=== PATIENT | female | born 1945 | race Caucasian/White ===

== ENCOUNTER 2018-05-14 09:54 | Inpatient (IN) | payer MEDICARE, BC ==
[2018-05-14] MEDS ORDERED: Sodium Chloride 0.9% 10 ML Syringe FLUSH PRN (10:34)
--- NOTE | 2018-05-14 11:16 | EDM.PDOC ---
ED HPI GENERAL MEDICAL PROBLEM - General Chief Complaint: Neuro Symptoms/Deficits Stated Complaint: [id number] HAD SEIZURE Time Seen by Provider: 05/14/18 10:18 Source of Information: Reports: Patient, RN, RN Notes Reviewed History Limitations: Reports: No Limitations - History of Present Illness INITIAL COMMENTS - FREE TEXT/NARRATIVE: Patient presents to ER per POV with son with complaint of seizures x2 this morning. Patient has a known seizure disorder, significant cardiac history with pacemaker, and defibrillator. Patient was started on Flexeril (cyclobenzaprine) about 1 week ago. She states she has been taking 1 in the a.m. and 2 at night due to muscle spasm in the neck. She has also been seeing PT at [facility]. Patient states she didn't feel well this morning and called her son, who then came to her house. He states she then had a witnessed 30 second episode where she had a blank stare and twitching. Patient alert and oriented upon arrival. States he bit her lip upper and lower. Onset: Today Location: Reports: Generalized Quality: Reports: Ache Severity: Mild Improves with: Reports: None Worsens with: Reports: None Associated Symptoms: Reports: No Other Symptoms - Related Data Allergies Allergy/AdvReac Type Severity Reaction Status Date / Time No Known Allergies Allergy Verified 05/14/18 09:58 Home Meds: Home Meds Escitalopram Oxalate [Lexapro] 10 mg PO DAILY 11/10/13 [History] Nitroglycerin [Nitrostat] 0.4 mg SL ASDIRECTED 11/10/13 [History] atorvaSTATin [Lipitor] 20 mg PO BEDTIME 11/10/13 [History] levETIRAcetam [Keppra] 500 mg PO BID 11/10/13 [History] Digoxin [Digox] 125 mcg PO DAILY 07/27/16 [History] Metoprolol Succinate 100 mg PO DAILY 07/27/16 [History] Cyclobenzaprine [Flexeril] 5 mg PO Q8H PRN 05/14/18 [History] Rivaroxaban [Xarelto] 20 mg PO DAILY 05/14/18 [History] Past Medical History HEENT History: Reports: Impaired Vision Cardiovascular History: Reports: Automatic Implantable Cardioverter Defibrillators, Bypass, High Cholesterol, Hypertension, Pacemaker Respiratory History: Reports: None Gastrointestinal History: Reports: GERD Neurological History: Reports: Seizure Psychiatric History: Reports: Anxiety - Past Surgical History HEENT Surgical History: Reports: Cataract Surgery Cardiovascular Surgical History: Reports: Coronary Artery Bypass, Pacer GI Surgical History: Reports: Cholecystectomy, Colonoscopy Other Musculoskeletal Surgeries/Procedures:: states had back surgery about 3 years ago Social & Family History - Family History Family Medical History: Noncontributory - Tobacco Use Smoking Status *Q: Never Smoker Second Hand Smoke Exposure: No - Caffeine Use Caffeine Use: Reports: None - Recreational Drug Use Recreational Drug Use: No - Living Situation & Occupation Living situation: Reports: with Family ED ROS GENERAL - Review of Systems Review Of Systems: ROS reveals no pertinent complaints other than HPI. - Physical Exam Exam: See Below Exam Limited By: No Limitations General Appearance: Alert, WD/WN, No Apparent Distress Eye Exam: Bilateral Eye: PERRL (3 brisk) Ears: Normal External Exam, Normal Canal, Hearing Grossly Normal, Normal TMs Nose: Normal Inspection, Normal Mucosa, No Blood Throat/Mouth: Normal Inspection, Normal Lips, Normal Teeth, Normal Gums, Normal Oropharynx, Normal Voice, No Airway Compromise Head Exam: Atraumatic, Normocephalic Neck: Normal Inspection, Supple, Non-Tender, Full Range of Motion Respiratory/Chest: No Respiratory Distress, Lungs Clear, Normal Breath Sounds, No Accessory Muscle Use, Chest Non-Tender Cardiovascular: Other (murmur) GI/Abdominal: Normal Bowel Sounds, Soft, Non-Tender, No Organomegaly, No Distention, No Abnormal Bruit, No Mass (Female) Exam: Deferred Rectal (Female) Exam: Deferred Neuro Exam (Abbreviated): Alert, Oriented, CN II-XII Intact, Normal Cognition, Normal Gait, Normal Reflexes, No Motor/Sensory Deficits Back Exam: Normal Inspection, Full Range of Motion, NT Extremities: Normal Inspection, Normal Range of Motion, Non-Tender, No Pedal Edema, Normal Capillary Refill Psychiatric: Normal Affect, Normal Mood Skin Exam: Warm, Dry, Intact, Normal Color, No Rash EKG INTERPRETATION EKG Date: 05/14/18 Time: 11:01 Rhythm: Other (atrial paced) Rate (Beats/Min): 60 Comparison: No Change Course - Vital Signs Last Recorded V/S: Last Vital Signs Temp 97.9 F 05/14/18 09:59 Pulse 86 05/14/18 09:59 Resp 16 05/14/18 09:59 BP 163/103 H 05/14/18 09:59 Pulse Ox 96 05/14/18 09:59 - Orders/Labs/Meds Orders: Active Orders 24 hr Category Date Time Status EKG Documentation Completion [RC] STAT Care 05/14/18 10:35 Active Peripheral IV Care [RC] . DIRECTED Care 05/14/18 10:38 Active Head wo Cont [CT] Stat Exams 05/14/18 10:37 Taken LEVETIRACETAM, S [REF] Urgent Lab 05/14/18 10:50 Received Sodium Chloride 0.9% [Saline Flush] Med 05/14/18 10:34 Active 10 ml FLUSH ASDIRECTED PRN Peripheral IV Insertion Adult [OM.PC] Stat Oth 05/14/18 10:35 Ordered Medication Orders Sodium Chloride (Saline Flush) 10 ml FLUSH ASDIRECTED PRN PRN Reason: Keep Vein Open Last Admin: 05/14/18 11:14 Dose: 10 ml Labs: Laboratory Tests 05/14/18 05/14/18 05/14/18 Range/Units 10:50 10:50 10:50 WBC 8.5 (5.0-10.0) 10^3/uL RBC 3.86 L (4.2-5.4) 10^6/uL Hgb 11.9 L (12.0-16.0) g/dL Hct 36.5 L (37.0-47.0) % MCV 94.6 (80-100) fL MCH 30.8 (27.0-34.0) pg MCHC 32.6 L (33.0-35.0) g/dL Plt Count 137 L (150-450) 10^3/uL Neut % (Auto) 83.2 H (42.2-75.2) % Lymph % (Auto) 11.0 L (20.5-50.1) % [place] % (Auto) 5.2 (2-8) % Eos % (Auto) 0.4 L (1.0-3.0) % Baso % (Auto) 0.2 (0.0-1.0) % PT 14.3 H D (9.0-12.0) SEC INR 1.5 H (0.9-1.2) Sodium 137 (135-145) mmol/L Potassium 4.1 (3.6-5.0) mmol/L Chloride 102 (101-111) mmol/L Carbon Dioxide 28.0 (21.0-31.0) mmol/L Anion Gap 11.1 BUN 22 H (7-18) mg/dL Creatinine 0.8 (0.6-1.3) mg/dL Est Cr Clr Drug Dosing 42.60 mL/min Estimated GFR (MDRD) > 60 BUN/Creatinine Ratio 27.50 Glucose 106 H (74-105) mg/dL Calcium 8.2 L (8.4-10.2) mg/dl Total Bilirubin 0.4 (0.2-1.0) mg/dL AST 30 (10-42) IU/L ALT 20 (10-60) IU/L Alkaline Phosphatase 84 (42-121) IU/L Total Protein 6.5 L (6.7-8.2) g/dl Albumin 3.1 L (3.2-5.5) g/dl Globulin 3.4 Albumin/Globulin Ratio 0.91 Urine Color (YELLOW) Urine Appearance (CLEAR) Urine pH (5.0-9.0) Ur Specific [place] (1.005-1.030) Urine Protein (NEGATIVE) Urine Glucose (UA) (NEGATIVE) Urine Ketones (NEGATIVE) Urine Occult Blood (NEGATIVE) Urine Nitrite (NEGATIVE) Urine Bilirubin (NEGATIVE) Urine Urobilinogen (0.2-1.0) mg/dL Ur Leukocyte Esterase (NEGATIVE) Urine RBC /HPF Urine WBC (0-5/HPF) /HPF Ur Epithelial Cells /HPF Urine Bacteria (0-FEW/HPF) /HPF Urine Mucus /LPF Digoxin (0-2.5) ng/ml 05/14/18 05/14/18 Range/Units 10:50 11:15 WBC (5.0-10.0) 10^3/uL RBC (4.2-5.4) 10^6/uL Hgb (12.0-16.0) g/dL Hct (37.0-47.0) % MCV (80-100) fL MCH (27.0-34.0) pg MCHC (33.0-35.0) g/dL Plt Count (150-450) 10^3/uL Neut % (Auto) (42.2-75.2) % Lymph % (Auto) (20.5-50.1) % [place] % (Auto) (2-8) % Eos % (Auto) (1.0-3.0) % Baso % (Auto) (0.0-1.0) % PT (9.0-12.0) SEC INR (0.9-1.2) Sodium (135-145) mmol/L Potassium (3.6-5.0) mmol/L Chloride (101-111) mmol/L Carbon Dioxide (21.0-31.0) mmol/L Anion Gap BUN (7-18) mg/dL Creatinine (0.6-1.3) mg/dL Est Cr Clr Drug Dosing mL/min Estimated GFR (MDRD) BUN/Creatinine Ratio Glucose (74-105) mg/dL Calcium (8.4-10.2) mg/dl Total Bilirubin (0.2-1.0) mg/dL AST (10-42) IU/L ALT (10-60) IU/L Alkaline Phosphatase (42-121) IU/L Total Protein (6.7-8.2) g/dl Albumin (3.2-5.5) g/dl Globulin Albumin/Globulin Ratio Urine Color Yellow (YELLOW) Urine Appearance Clear (CLEAR) Urine pH 6.0 (5.0-9.0) Ur Specific [place] 1.020 (1.005-1.030) Urine Protein Negative (NEGATIVE) Urine Glucose (UA) Negative (NEGATIVE) Urine Ketones Negative (NEGATIVE) Urine Occult Blood Trace-lysed H (NEGATIVE) Urine Nitrite Negative (NEGATIVE) Urine Bilirubin Negative (NEGATIVE) Urine Urobilinogen 0.2 (0.2-1.0) mg/dL Ur Leukocyte Esterase Small H (NEGATIVE) Urine RBC 0-5 /HPF Urine WBC 5-10 H (0-5/HPF) /HPF Ur Epithelial Cells Few /HPF Urine Bacteria Few (0-FEW/HPF) /HPF Urine Mucus Few H /LPF Digoxin 3.3 H* (0-2.5) ng/ml Meds: Medications Generic Name Dose Route Start Last Admin Trade Name Freq PRN Reason Stop Dose Admin Sodium Chloride 10 ml 05/14/18 10:34 05/14/18 11:14 Saline Flush FLUSH 10 ml ASDIRECTED PRN Administration Keep Vein Open - Radiology Interpretation Free Text/Narrative:: Head CT: IMPRESSION: 1. Age-related atrophy and chronic white matter ischemic changes, with no evidence of an acute intracranial abnormality. 2. No hemorrhage, mass effect or midline shift. Thank you for allowing us to participate in the care of your patient. See rad report Departure - Departure Time of Disposition: 12:40 Disposition: Refer to Observation Condition: Fair Clinical Impression: Seizure Digoxin toxicity Qualifiers: Encounter type: initial encounter Injury intent: accidental or unintentional Qualified Code(s): T46.0X1A - Poisoning by cardiac-stimulant glycosides and drugs of similar action, accidental (unintentional), initial encounter - Discharge Information *PRESCRIPTION DRUG MONITORING PROGRAM REVIEWED*: No *COPY OF PRESCRIPTION DRUG MONITORING REPORT IN PATIENT ESTELA: No - My Orders Last 24 Hours: My Active Orders 05/14/18 10:34 Sodium Chloride 0.9% [Saline Flush] 10 ml FLUSH ASDIRECTED PRN 05/14/18 10:35 EKG Documentation Completion [RC] STAT Peripheral IV Insertion Adult [OM.PC] Stat 05/14/18 10:37 Head wo Cont [CT] Stat 05/14/18 10:38 Peripheral IV Care [RC] . DIRECTED 05/14/18 10:50 LEVETIRACETAM, S [REF] Urgent - Assessment/Plan Last 24 Hours: My Active Orders 05/14/18 10:34 Sodium Chloride 0.9% [Saline Flush] 10 ml FLUSH ASDIRECTED PRN 05/14/18 10:35 EKG Documentation Completion [RC] STAT Peripheral IV Insertion Adult [OM.PC] Stat 05/14/18 10:37 Head wo Cont [CT] Stat 05/14/18 10:38 Peripheral IV Care [RC] . DIRECTED 05/14/18 10:50 LEVETIRACETAM, S [REF] Urgent
[2018-05-14 11:17] LABS: ANION GAP 11.1; CHLORIDE,CL 102 mmol/L (101-111); SODIUM,NA 137 mmol/L (135-145)
[2018-05-14] MEDS ORDERED: Acetaminophen 325 MG Tab PO PRN (13:05)
--- NOTE | 2018-05-14 13:14 | PCM.HP ---
H&P History of Present Illness - General Date of Service: 05/14/18 Admit Problem/Dx: Admission Diagnosis/Problem Admission Diagnosis/Problem Seizure disorder Source of Information: Patient History Limitations: Reports: No Limitations - History of Present Illness Initial Comments - Free Text/Narative: Patient 73 y/o F with h/o seizure disorder, last seizure over 3 years ago,CAD s/ p CABG, s/p pacemaker, and defibrillator, HTN, HLD, Anxiety. She was brought to the ER on account of seizures x 2 this morning. Patient said she felt funny this morning and lay on the ground. Did not remember if she had a seizure episode but reporting bitting her lips. He called the son who came over to see her. Upon arrival son said the mother was bending over to pick an object on the ground and then she froze. Patient was staring blankly into space and started twitching. This lasted for 30 s and she came out of it. She denies bladder or bowel incontinence but said she bit her lower lip. She was not confused following the episode. On arrival to the ER she was alert and oriented x 3. She denies headache, numbness, weakness, chest pain,SOB. No fever or chills. No nausea, vomiting. Labs in the ER showed digoxin elevated at 3.3. Patient denied overdose on her digoxin. CT brain was negative for acute injury. Of notes she was recently started on Flexeril (cyclobenzaprine) about 1 week ago. She also on Lexapro. - Related Data Allergies/Adverse Reactions: Allergies Allergy/AdvReac Type Severity Reaction Status Date / Time No Known Allergies Allergy Verified 05/14/18 09:58 Home Medications: Home Meds Escitalopram Oxalate [Lexapro] 10 mg PO DAILY 11/10/13 [History] Nitroglycerin [Nitrostat] 0.4 mg SL ASDIRECTED 11/10/13 [History] atorvaSTATin [Lipitor] 20 mg PO BEDTIME 11/10/13 [History] levETIRAcetam [Keppra] 500 mg PO BID 11/10/13 [History] Digoxin [Digox] 125 mcg PO DAILY 07/27/16 [History] Metoprolol Succinate 100 mg PO DAILY 07/27/16 [History] Cyclobenzaprine [Flexeril] 5 mg PO Q8H PRN 05/14/18 [History] Rivaroxaban [Xarelto] 20 mg PO DAILY 05/14/18 [History] Past Medical History HEENT History: Reports: Impaired Vision Cardiovascular History: Reports: Automatic Implantable Cardioverter Defibrillators, Bypass, High Cholesterol, Hypertension, Pacemaker Respiratory History: Reports: None Gastrointestinal History: Reports: GERD Neurological History: Reports: Seizure Psychiatric History: Reports: Anxiety - Past Surgical History HEENT Surgical History: Reports: Cataract Surgery Cardiovascular Surgical History: Reports: Coronary Artery Bypass, Pacer GI Surgical History: Reports: Cholecystectomy, Colonoscopy Other Musculoskeletal Surgeries/Procedures:: states had back surgery about 3 years ago Social & Family History - Family History Family Medical History: Noncontributory - Tobacco Use Smoking Status *Q: Never Smoker Second Hand Smoke Exposure: No - Caffeine Use Caffeine Use: Reports: None - Recreational Drug Use Recreational Drug Use: No - Living Situation & Occupation Living situation: Reports: with Family H&P Review of Systems - Review of Systems: Review Of Systems: See Below General: Reports: No Symptoms HEENT: Reports: No Symptoms Pulmonary: Reports: No Symptoms Cardiovascular: Reports: No Symptoms Gastrointestinal: Reports: No Symptoms Genitourinary: Reports: No Symptoms Musculoskeletal: Reports: No Symptoms Skin: Reports: No Symptoms Psychiatric: Reports: No Symptoms Neurological: Reports: No Symptoms Hematologic/Lymphatic: Reports: No Symptoms Immunologic: Reports: No Symptoms Exam - Exam Exam: See Below - Vital Signs Vital Signs: Last Vital Signs Temp 98.5 F 05/14/18 12:43 Pulse 79 05/14/18 12:43 Resp 20 05/14/18 12:43 BP 163/80 H 05/14/18 12:43 Pulse Ox 94 L 05/14/18 12:43 Weight: 105 lb 12.8 oz - Exam Quality Assessment: DVT Prophylaxis General: Alert, Oriented, 4 HEENT: PERRLA, Hearing Intact, Mucosa Moist & [place], Nares Patent, Normal Nasal Septum, Posterior Pharynx Clear, Conjunctiva Clear, EOMI, EACs Clear, TMs Clear Neck: Supple, Trachea Midline, 2 Lungs: Clear to Auscultation, Normal Respiratory Effort Cardiovascular: Regular Rate, Regular Rhythm GI/Abdominal Exam: Normal Bowel Sounds, Soft, Non-Tender, No Organomegaly, No Distention, No Abnormal Bruit, No Mass, Pelvis Stable (Female) Exam: Normal External Exam, Normal Speculum Exam, Normal Bimanual Exam Rectal (Female) Exam: Normal Exam, Normal Rectal Tone Back Exam: Normal Inspection, Full Range of Motion, NT Extremities: Normal Inspection, Normal Range of Motion, Non-Tender, No Pedal Edema, Normal Capillary Refill Skin: Warm, Dry, Intact Neurological: Cranial Nerves Intact, Reflexes Equal Bilateral Neuro Extensive - Mental Status: Alert, Oriented x3, Normal Mood/Affect, Normal Cognition Neuro Extensive - Motor, Sensory, Reflexes: CN II-XII Intact, Normal Gait, Normal Reflexes Psychiatric: Alert, Normal Affect, Normal Mood - Patient Data Lab Results Last 24 hrs: Laboratory Results - last 24 hr 05/14/18 05/14/18 05/14/18 Range/Units 10:50 10:50 10:50 WBC 8.5 (5.0-10.0) 10^3/uL RBC 3.86 L (4.2-5.4) 10^6/uL Hgb 11.9 L (12.0-16.0) g/dL Hct 36.5 L (37.0-47.0) % MCV 94.6 (80-100) fL MCH 30.8 (27.0-34.0) pg MCHC 32.6 L (33.0-35.0) g/dL Plt Count 137 L (150-450) 10^3/uL Neut % (Auto) 83.2 H (42.2-75.2) % Lymph % (Auto) 11.0 L (20.5-50.1) % [place] % (Auto) 5.2 (2-8) % Eos % (Auto) 0.4 L (1.0-3.0) % Baso % (Auto) 0.2 (0.0-1.0) % PT 14.3 H D (9.0-12.0) SEC INR 1.5 H (0.9-1.2) Sodium 137 (135-145) mmol/L Potassium 4.1 (3.6-5.0) mmol/L Chloride 102 (101-111) mmol/L Carbon Dioxide 28.0 (21.0-31.0) mmol/L Anion Gap 11.1 BUN 22 H (7-18) mg/dL Creatinine 0.8 (0.6-1.3) mg/dL Est Cr Clr Drug Dosing 42.60 mL/min Estimated GFR (MDRD) > 60 BUN/Creatinine Ratio 27.50 Glucose 106 H (74-105) mg/dL Calcium 8.2 L (8.4-10.2) mg/dl Total Bilirubin 0.4 (0.2-1.0) mg/dL AST 30 (10-42) IU/L ALT 20 (10-60) IU/L Alkaline Phosphatase 84 (42-121) IU/L Total Protein 6.5 L (6.7-8.2) g/dl Albumin 3.1 L (3.2-5.5) g/dl Globulin 3.4 Albumin/Globulin Ratio 0.91 Urine Color (YELLOW) Urine Appearance (CLEAR) Urine pH (5.0-9.0) Ur Specific [place] (1.005-1.030) Urine Protein (NEGATIVE) Urine Glucose (UA) (NEGATIVE) Urine Ketones (NEGATIVE) Urine Occult Blood (NEGATIVE) Urine Nitrite (NEGATIVE) Urine Bilirubin (NEGATIVE) Urine Urobilinogen (0.2-1.0) mg/dL Ur Leukocyte Esterase (NEGATIVE) Urine RBC /HPF Urine WBC (0-5/HPF) /HPF Ur Epithelial Cells /HPF Urine Bacteria (0-FEW/HPF) /HPF Urine Mucus /LPF Digoxin (0-2.5) ng/ml 05/14/18 05/14/18 Range/Units 10:50 11:15 WBC (5.0-10.0) 10^3/uL RBC (4.2-5.4) 10^6/uL Hgb (12.0-16.0) g/dL Hct (37.0-47.0) % MCV (80-100) fL MCH (27.0-34.0) pg MCHC (33.0-35.0) g/dL Plt Count (150-450) 10^3/uL Neut % (Auto) (42.2-75.2) % Lymph % (Auto) (20.5-50.1) % [place] % (Auto) (2-8) % Eos % (Auto) (1.0-3.0) % Baso % (Auto) (0.0-1.0) % PT (9.0-12.0) SEC INR (0.9-1.2) Sodium (135-145) mmol/L Potassium (3.6-5.0) mmol/L Chloride (101-111) mmol/L Carbon Dioxide (21.0-31.0) mmol/L Anion Gap BUN (7-18) mg/dL Creatinine (0.6-1.3) mg/dL Est Cr Clr Drug Dosing mL/min Estimated GFR (MDRD) BUN/Creatinine Ratio Glucose (74-105) mg/dL Calcium (8.4-10.2) mg/dl Total Bilirubin (0.2-1.0) mg/dL AST (10-42) IU/L ALT (10-60) IU/L Alkaline Phosphatase (42-121) IU/L Total Protein (6.7-8.2) g/dl Albumin (3.2-5.5) g/dl Globulin Albumin/Globulin Ratio Urine Color Yellow (YELLOW) Urine Appearance Clear (CLEAR) Urine pH 6.0 (5.0-9.0) Ur Specific [place] 1.020 (1.005-1.030) Urine Protein Negative (NEGATIVE) Urine Glucose (UA) Negative (NEGATIVE) Urine Ketones Negative (NEGATIVE) Urine Occult Blood Trace-lysed H (NEGATIVE) Urine Nitrite Negative (NEGATIVE) Urine Bilirubin Negative (NEGATIVE) Urine Urobilinogen 0.2 (0.2-1.0) mg/dL Ur Leukocyte Esterase Small H (NEGATIVE) Urine RBC 0-5 /HPF Urine WBC 5-10 H (0-5/HPF) /HPF Ur Epithelial Cells Few /HPF Urine Bacteria Few (0-FEW/HPF) /HPF Urine Mucus Few H /LPF Digoxin 3.3 H* (0-2.5) ng/ml Result Diagrams: 05/14/18 10:50 05/14/18 10:50 - Problem List (1) CAD (coronary artery disease) SNOMED Code(s): 66723039 ICD Code: I25.10 - ATHSCL HEART DISEASE OF [place] CORONARY ARTERY W/O ANG PCTRS Status: Acute Current Visit: Yes (2) Digoxin toxicity SNOMED Code(s): 08958570 ICD Code: T46.0X1A - POISONING BY CARDI-STIM GLYCOS/DRUG SIMLAR ACT, ACC, INIT Status: Acute Current Visit: Yes Qualifiers: Encounter type: initial encounter Injury intent: accidental or unintentional Qualified Code(s): T46.0X1A - Poisoning by cardiac-stimulant glycosides and drugs of similar action, accidental (unintentional), initial encounter (3) Seizure SNOMED Code(s): 93389845 ICD Code: R56.9 - UNSPECIFIED CONVULSIONS Status: Acute Current Visit: Yes (4) History of seizure disorder SNOMED Code(s): 068261264 ICD Code: Z86.69 - PERSONAL HISTORY OF DIS OF THE NERVOUS SYS AND SENSE ORGANS Status: Acute Current Visit: No Problem List Initiated/Reviewed/Updated: Yes Orders Last 24hrs: Active Orders 24 hr Category Date Time Status Patient Status [ADT] Routine ADT 05/14/18 13:05 Ordered Ambulate [RC] ASDIRECTED Care 05/14/18 13:05 Ordered EKG Documentation Completion [RC] STAT Care 05/14/18 10:35 Active Notify Provider Vital Signs [RC] ASDIRECTED Care 05/14/18 13:07 Ordered Oxygen Therapy [RC] PRN Care 05/14/18 13:05 Ordered Peripheral IV Care [RC] . DIRECTED Care 05/14/18 10:38 Active VTE/DVT Education [RC] PER UNIT ROUTINE Care 05/14/18 13:05 Ordered Vital Signs [RC] Q4H Care 05/14/18 13:05 Ordered Heart Healthy Diet [DIET] Diet 05/14/18 Dinner Ordered Head wo Cont [CT] Stat Exams 05/14/18 10:37 Taken LEVETIRACETAM, S [REF] Urgent Lab 05/14/18 10:50 Received Acetaminophen [Tylenol] Med 05/14/18 13:05 Ordered 650 mg PO Q4H PRN Escitalopram Oxalate [Lexapro] Med 05/15/18 09:00 Ordered 10 mg PO DAILY Metoprolol Succinate [Metoprolol Succinate] Med 05/14/18 13:15 Ordered 100 mg PO DAILY Nitroglycerin [Nitrostat] Med 05/14/18 13:15 Ordered 0.4 mg SL ASDIRECTED Rivaroxaban [Xarelto] Med 05/15/18 09:00 Ordered 20 mg PO DAILY Sodium Chloride 0.9% [Normal Saline] 1,000 ml Med 05/14/18 13:15 Ordered IV ASDIRECTED Sodium Chloride 0.9% [Saline Flush] Med 05/14/18 10:34 Active 10 ml FLUSH ASDIRECTED PRN atorvaSTATin [Lipitor] Med 05/14/18 21:00 Ordered 20 mg PO BEDTIME levETIRAcetam [Keppra] Med 05/14/18 13:15 Ordered 500 mg PO BID Peripheral IV Insertion Adult [OM.PC] Stat Oth 05/14/18 10:35 Ordered Resuscitation Status Routine Resus Stat 05/14/18 13:05 Ordered Medication Orders Acetaminophen (Tylenol) 650 mg PO Q4H PRN PRN Reason: Pain (Mild 1-3)/fever Sodium Chloride (Normal Saline) 1,000 mls @ 50 mls/hr IV ASDIRECTED GERALDINE Levetiracetam (Keppra) 500 mg PO BID GERALDINE Nitroglycerin (Nitrostat) 0.4 mg SL ASDIRECTED GERALDINE Non-Formulary Medication (Atorvastatin [Lipitor]) 20 mg PO BEDTIME GERALDINE Non-Formulary Medication (Escitalopram Oxalate [Lexapro]) 10 mg PO DAILY GERALDINE Non-Formulary Medication (Metoprolol Succinate [Metoprolol Succinate]) 100 mg PO DAILY GERALDINE Non-Formulary Medication (Rivaroxaban [Xarelto]) 20 mg PO DAILY GERALDINE Sodium Chloride (Saline Flush) 10 ml FLUSH ASDIRECTED PRN PRN Reason: Keep Vein Open Last Admin: 05/14/18 11:14 Dose: 10 ml Assessment/Plan Comment:: Recurrent seizure vs breakthrough seizure Likely due to flexeril admit patient start her home keppra. Patient did not take her medication this morning Keppra level sent monitor for seizures Ativan 2 mg IV prn for seizures fall/seizure/aspiration precautions Hold flexerel for now Elevated digoxin level Her digoxin level was 3.3 on admission it is not clear if this is acute or chronic she has no symptoms at this time. No nausea, vomiting, abdominal pain, anorexia. No confusion, weakness or delirium. EKG showed atral -paed complexes Given that patient is stable with no life threatening arrhythmia or symptoms of digoxin toxicity, I will hold digoxin-specific antibody (Julián) fragments for now Digoxin level is < 5 Monitor patient on telemetry Hold digoxin Repeat level in the AM CAD s/p CABG stable continue home medications HTN BP within acceptable limits Continue home medication monitor BP closely HLD Continue lipitor Anxiety patient on Lexapro. This could also cuase siezure Hold for now Cardiac diet Full code
[2018-05-14] MEDS ORDERED: Sodium Chloride 0.9% 1,000 ML IV SCH (13:15)
[2018-05-14] MEDS ORDERED: Nitroglycerin 0.4 MG Tab.SL SL SCH (13:15)
[2018-05-14] MEDS: Metoprolol Succinate 50 MG Tab.ER PO SCH (13:46)
[2018-05-14] MEDS: levETIRAcetam 500 MG Tab PO SCH ×2 (13:46→21:06)
[2018-05-14] MEDS ORDERED: Rivaroxaban 10 MG Tab PO ONE (14:00)
[2018-05-14] MEDS ORDERED: Escitalopram 10 MG Tab PO ONE (14:00)
[2018-05-14] MEDS ORDERED: atorvaSTATin 20 MG Tab PO SCH (21:00)
[2018-05-15 06:45] LABS: ANION GAP 12.9; CHLORIDE,CL 103 mmol/L (101-111); SODIUM,NA 139 mmol/L (135-145)
[2018-05-15] MEDS: Metoprolol Succinate 50 MG Tab.ER PO SCH (08:42)
[2018-05-15] MEDS: levETIRAcetam 500 MG Tab PO SCH (08:44)
[2018-05-15] MEDS ORDERED: Rivaroxaban 10 MG Tab PO SCH (09:00)
--- NOTE | 2018-05-15 12:32 | PCM.DCSUM1 ---
Discharge Summary - Hospital Course HPI Initial Comments: Patient 73 y/o F with h/o seizure disorder, last seizure over 3 years ago,CAD s/ p CABG, s/p pacemaker, and defibrillator, HTN, HLD, Anxiety. She was brought to the ER on account of seizures x 2 this morning. She subsequently admitted. Her digoxin level was elevated at 3.3 and appeared to be chronic. She had no symptoms of dogoxin toxicity. She was managed conservatively. Her digoxin level this morning was 3.0 down from 3.3. She had not any seizure since admission. She was since this and remained in a stable condition. She is being discharge home to follow up with her PCP tomorrow for review and digoxin level check. Cyclobenzaprine has been held. She is also advised to hold digoxin for today until level is checked tomorrow. Diagnosis: Stroke: No - Discharge Data Discharge Date: 05/15/18 Discharge Disposition: Home, Self-Care 01 Condition: Good - Discharge Diagnosis/Problem(s) (1) CAD (coronary artery disease) SNOMED Code(s): 20825056 ICD Code: I25.10 - ATHSCL HEART DISEASE OF [place] CORONARY ARTERY W/O ANG PCTRS Status: Acute Current Visit: Yes (2) Digoxin toxicity SNOMED Code(s): 14218548 ICD Code: T46.0X1A - POISONING BY CARDI-STIM GLYCOS/DRUG SIMLAR ACT, ACC, INIT Status: Acute Current Visit: Yes Qualifiers: Encounter type: initial encounter Injury intent: accidental or unintentional Qualified Code(s): T46.0X1A - Poisoning by cardiac-stimulant glycosides and drugs of similar action, accidental (unintentional), initial encounter (3) Seizure SNOMED Code(s): 69149422 ICD Code: R56.9 - UNSPECIFIED CONVULSIONS Status: Acute Current Visit: Yes (4) History of seizure disorder SNOMED Code(s): 927095985 ICD Code: Z86.69 - PERSONAL HISTORY OF DIS OF THE NERVOUS SYS AND SENSE ORGANS Status: Acute Current Visit: No - Patient Instructions Diet: Heart Healthy Diet Activity: As Tolerated Notify Provider of: Fever, Nausea and/or Vomiting - Discharge Plan *PRESCRIPTION DRUG MONITORING PROGRAM REVIEWED*: No *COPY OF PRESCRIPTION DRUG MONITORING REPORT IN PATIENT ESTELA: No Home Medications: Home Meds Escitalopram Oxalate [Lexapro] 10 mg PO DAILY 11/10/13 [History] Nitroglycerin [Nitrostat] 0.4 mg SL ASDIRECTED 11/10/13 [History] atorvaSTATin [Lipitor] 20 mg PO BEDTIME 11/10/13 [History] levETIRAcetam [Keppra] 500 mg PO BID 11/10/13 [History] Digoxin [Digox] 125 mcg PO DAILY 07/27/16 [History] Metoprolol Succinate 100 mg PO DAILY 07/27/16 [History] Rivaroxaban [Xarelto] 20 mg PO DAILY 05/14/18 [History] Patient Handouts: Digoxin Toxicity, Seizure, Adult, Coronary Artery Disease, Female - Discharge Summary/Plan Comment DC Time >30 min.: Yes - General Info Admission Dx/Problem (Free Text: Admission Diagnosis/Problem Admission Diagnosis/Problem Seizure disorder Subjective Update: Patient 73 y/o F with h/o seizure disorder, last seizure over 3 years ago,CAD s/ p CABG, s/p pacemaker, and defibrillator, HTN, HLD, Anxiety. She was brought to the ER on account of seizures x 2 this morning. She subsequently admitted. Her digoxin level was elevated at 3.3 and appeared to be chronic. She had no symptoms of dogoxin toxicity. She was managed conservatively. Her digoxin level this morning was 3.0 down from 3.3. She had not any seizure since admission. She was since this and remained in a stable condition. She is being discharge home to follow up with her PCP tomorrow for review and digoxin level check. Cyclobenzaprine has been held. She is also advised to hold digoxin for today until level is checked tomorrow. Functional Status: Reports: Pain Controlled - Review of Systems General: Reports: No Symptoms HEENT: Reports: No Symptoms Pulmonary: Reports: No Symptoms Cardiovascular: Reports: No Symptoms Gastrointestinal: Reports: No Symptoms Genitourinary: Reports: No Symptoms Musculoskeletal: Reports: No Symptoms Skin: Reports: No Symptoms Neurological: Reports: No Symptoms Psychiatric: Reports: No Symptoms - Patient Data Vitals - Most Recent: Last Vital Signs Temp 98.8 F 05/15/18 07:58 Pulse 60 05/15/18 08:42 Resp 20 05/15/18 07:58 BP 145/76 H 05/15/18 08:42 Pulse Ox 97 05/15/18 07:58 Weight - Most Recent: 105 lb 12.8 oz I&O - Last 24 hours: Intake & Output 05/14/18 05/15/18 05/15/18 22:59 06:59 14:59 Intake Total 460 400 Output Total 200 1300 550 Balance 260 -900 -550 Lab Results - Last 24 hrs: Laboratory Results - last 24 hr 05/15/18 05/15/18 Range/Units 06:10 06:10 Sodium 139 (135-145) mmol/L Potassium 3.9 (3.6-5.0) mmol/L Chloride 103 (101-111) mmol/L Carbon Dioxide 27.0 (21.0-31.0) mmol/L Anion Gap 12.9 BUN 14 (7-18) mg/dL Creatinine 0.8 (0.6-1.3) mg/dL Est Cr Clr Drug Dosing 44.99 mL/min Estimated GFR (MDRD) > 60 Glucose 94 (74-105) mg/dL Calcium 8.0 L (8.4-10.2) mg/dl Digoxin 3.0 H* (0-2.5) ng/ml Med Orders - Current: Current Medications Acetaminophen (Tylenol) 650 mg PO Q4H PRN PRN Reason: Pain (Mild 1-3)/fever Atorvastatin Calcium (Lipitor) 20 mg PO BEDTIME [facility] Last Admin: 05/14/18 21:06 Dose: 20 mg Escitalopram Oxalate (Lexapro) 10 mg PO BEDTIME [facility] Sodium Chloride (Normal Saline) 1,000 mls @ 50 mls/hr IV ASDIRECTED [facility] Last Admin: 05/14/18 14:56 Dose: 50 mls/hr Levetiracetam (Keppra) 500 mg PO BID [facility] Last Admin: 05/15/18 08:44 Dose: 500 mg Metoprolol Succinate (Toprol Xl) 100 mg PO DAILY [facility] Last Admin: 05/15/18 08:42 Dose: 100 mg Nitroglycerin (Nitrostat) 0.4 mg SL ASDIRECTED [facility] Rivaroxaban (Xarelto) 20 mg PO DAILY [facility] Last Admin: 05/15/18 08:44 Dose: 20 mg Sodium Chloride (Saline Flush) 10 ml FLUSH ASDIRECTED PRN PRN Reason: Keep Vein Open Last Admin: 05/14/18 11:14 Dose: 10 ml Discontinued Medications Escitalopram Oxalate (Lexapro) 10 mg PO ONETIME ONE Stop: 05/14/18 14:01 Last Admin: 05/14/18 16:51 Dose: Not Given Rivaroxaban (Xarelto) 20 mg PO ONETIME ONE Stop: 05/14/18 14:01 Last Admin: 05/14/18 14:50 Dose: 20 mg - Exam Quality Assessment: Reports: DVT Prophylaxis General: Reports: Alert, Oriented HEENT: Reports: Pupils Equal, Pupils Reactive, EOMI, Mucous Membr. Moist/[place]ck: Reports: Supple Lungs: Reports: Clear to Auscultation, Normal Respiratory Effort Cardiovascular: Reports: Regular Rate, Regular Rhythm GI/Abdominal Exam: Normal Bowel Sounds, Soft, Non-Tender, No Organomegaly, No Distention, No Abnormal Bruit, No Mass, Pelvis Stable (Female) Exam: Normal External Exam, Normal Speculum Exam, Normal Bimanual Exam Rectal (Female) Exam: Normal Exam, Normal Rectal Tone Back Exam: Reports: Normal Inspection, Full Range of Motion Extremities: Normal Inspection, Normal Range of Motion, Non-Tender, No Pedal Edema, Normal Capillary Refill Skin: Reports: Warm, Dry, Intact Wound/Incisions: Reports: Healing Well Neurological: Reports: No New Focal Deficit Psy/Mental Status: Reports: Alert, Normal Affect, Normal Mood
[2018-05-15 13:48] VITALS: BP 142/74
[2018-05-15] MEDS ORDERED: Escitalopram 10 MG Tab PO SCH (21:00)
--- NOTE | 2018-05-17 00:24 | EKG ---
05/14/2018 - CLAIR ROB - TIME: 1:46 p.m. FINDINGS: As per my reading, atrial paced complexes at 50 and left ventricular hypertrophy with IVCD. MOD /[id number]
--- NOTE | 2018-05-17 00:38 | EKG ---
05/14/2018 - CLAIR ROB - TIME: At 11:01 a.m. FINDINGS: Atrial paced rhythm, left ventricular hypertrophy with IVCD. [facility] /[id number]
== END 2018-05-15 14:30 | disposition home or self-care (01) | DRG 101 ==
LOC: DL.ED 09:54 → UNDOADMIN 12:30 → DL.MS 12:30
PROVIDERS: ADMIT Student in an Organized Health Care Education/Training Program; ATTEND Student in an Organized Health Care Education/Training Program
DX: G40.909 Epilepsy, unspecified, not intractable, without status epilepticus (principal); T46.0X1A Poisoning by cardiac-stimulant glycosides and drugs of similar action, accidental (unintentional), initial encounter; I25.10 Atherosclerotic heart disease of native coronary artery without angina pectoris; I10 Essential (primary) hypertension; E78.5 Hyperlipidemia, unspecified; K21.9 Gastro-esophageal reflux disease without esophagitis; F41.9 Anxiety disorder, unspecified; H54.7 Unspecified visual loss; Z95.1 Presence of aortocoronary bypass graft; Z95.810 Presence of automatic (implantable) cardiac defibrillator; Z79.899 Other long term (current) drug therapy
CPT/HCPCS: 36415; 70450; 80053; 80162; 80177; 81001; 85025; 85610; 93005; 99285; J7050; 80048; 93010; A9270-GY; J7030

== ENCOUNTER 2019-07-31 08:56 | Emergency (ER) | payer MEDICARE, BC ==
--- NOTE | 2019-07-31 08:52 | EDM.PDOC ---
ED HPI GENERAL MEDICAL PROBLEM - General Chief Complaint: Trauma Stated Complaint: TRAUMA CODE Time Seen by Provider: 07/31/19 08:51 Source of Information: Reports: Patient, EMS, Old Records, RN, RN Notes Reviewed History Limitations: Reports: Altered Mental Status - History of Present Illness INITIAL COMMENTS - FREE TEXT/NARRATIVE: Pt arrives to ER from home by ambulance with report that pt was found on the floor in the apartment hallway confused and weak with blood on the back of her head, blood on the sofa, and blood on the kitchen floor. Pt confused and unable to provide any history of the events of the last 24 hours other that she had been baking cookies. Pt has Hx of seizure disorder, CVA, CAD, and has a pace maker w/defibrillator. TRAUMA NOTES ARRIVAL TIME: 850 C-COLLAR STATUS: no c-collar SPINAL BOARD/IMMOBILIZATION STATUS: no spinal board GCS ON ARRIVAL: 13 Onset: Unknown/Unsure Duration: Constant Location: Reports: Head, Generalized Severity: Severe Improves with: Reports: None Worsens with: Reports: None Associated Symptoms: Reports: No Other Symptoms - Related Data Allergies Allergy/AdvReac Type Severity Reaction Status Date / Time No Known Allergies Allergy Verified 08/01/18 11:19 Home Meds: Home Meds Escitalopram Oxalate [Lexapro] 10 mg PO DAILY 11/10/13 [History] Nitroglycerin [Nitrostat] 0.4 mg SL ASDIRECTED PRN 11/10/13 [History] atorvaSTATin [Lipitor] 20 mg PO BEDTIME 11/10/13 [History] Digoxin [Digox] 125 mcg PO DAILY 07/27/16 [History] Metoprolol Succinate 100 mg PO DAILY 07/27/16 [History] Rivaroxaban [Xarelto] 20 mg PO DAILY 05/14/18 [History] levETIRAcetam [Keppra] 750 mg PO BID #60 tablet 08/02/18 [Rx] Past Medical History HEENT History: Reports: Impaired Vision Cardiovascular History: Reports: Afib, Automatic Implantable Cardioverter Defibrillators, Bypass, CAD, High Cholesterol, Hypertension, Pacemaker, Stents Other Cardiovascular History: defibulator Respiratory History: Reports: None Gastrointestinal History: Reports: GERD 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: Neurological History: Reports: CVA, Seizure Psychiatric History: Reports: Anxiety - Infectious Disease History Infectious Disease History: Reports: Chicken Pox, Measles, Mumps - Past Surgical History HEENT Surgical History: Reports: Adenoidectomy, Cataract Surgery, Tonsillectomy Cardiovascular Surgical History: Reports: Coronary Artery Bypass, Pacer GI Surgical History: Reports: Cholecystectomy, Colonoscopy Other Musculoskeletal Surgeries/Procedures:: states had back surgery about 3 years ago Social & Family History - Family History Family Medical History: Noncontributory - Caffeine Use Caffeine Use: Reports: Coffee - Living Situation & Occupation Living situation: Reports: Alone Occupation: Employed Review of Systems - Review of Systems Review Of Systems: Unable To Obtain (due to confusion) Reason Not Obtained: confusion, alt. mental status ED EXAM, GENERAL - Physical Exam Exam: See Below Free Text/Narrative:: PRIMARY TRAUMA SURVEY (0853hrs) AIRWAY: Patent nasal and oral airways. BREATHING: Spontaneous respirations with clear B/L breath sounds. CIRCULATION: Heart RRR, intact distal pulses at all four extremities, no cyanosis. DEFORMITY/DISABILITY: No long bone deformities. Dried blood to posterior scalp , no active bleeding. Confused, suspected postictal. Moves all extremities with no neuro. deficits. Abdomen benign to exam. Chest non-tender. Pelvis stable. Minor bite injury to tip of tongue. EXPOSURE: Skin warm, and dry. Abrasion to occipital scalp. SECONDARY TRAUMA SURVEY FOLLOWS (0950hrs) Exam Limited By: Altered Mental Status General Appearance: Alert, No Apparent Distress, Thin Eye Exam: Bilateral Eye: EOMI, Normal Inspection, PERRL Ears: Normal External Exam, Normal Canal, Hearing Grossly Normal, Normal TMs, Other (No hemotympanum) Nose: Normal Inspection, Normal Mucosa, No Blood Throat/Mouth: Normal Lips, Normal Teeth, Normal Oropharynx, Normal Voice, No Airway Compromise, Other (minor bite injury to tip of tongue) Head: Normocephalic, Other (Abrasion w/evidence of recent bleeding at occipital scalp) Neck: Normal Inspection, Supple, Non-Tender, Full Range of Motion, Other (C- spine cleared by Hx/exam and CT scan, no C-collar.). No: Lymphadenopathy (L), Lymphadenopathy (R) Respiratory/Chest: No Respiratory Distress, Lungs Clear, Normal Breath Sounds, No Accessory Muscle Use, Chest Non-Tender Cardiovascular: Normal Peripheral Pulses, Regular Rate, Rhythm, No Edema, No Gallop, No JVD, No Murmur, No Rub, Extra Beats GI/Abdominal: Normal Bowel Sounds, Soft, Non-Tender, No Organomegaly, No Distention, No Abnormal Bruit, No Mass (Female) Exam: Deferred Rectal (Female) Exam: Deferred Back Exam: Normal Inspection, Full Range of Motion. No: CVA Tenderness (L), CVA Tenderness (R) Extremities: Normal Inspection, Normal Range of Motion, Non-Tender, Normal Capillary Refill, No Pedal Edema Neurological: Alert, No Motor/Sensory Deficits, Confused, Memory Loss Recent Events, Other (GCS 14 at 1 hour. GCS 15 at time of transfer.) Psychiatric: Normal Mood Skin Exam: Warm, Dry, Normal Color, No Rash EKG INTERPRETATION EKG Date: 07/31/19 Time: 09:08 Rhythm: Other (Paced: no further interpretation attempted.) Rate (Beats/Min): 85 Comparison: No Change Course - Vital Signs Last Recorded V/S: Last Vital Signs Temp 98.4 F 07/31/19 10:45 Pulse 73 07/31/19 10:45 Resp 18 07/31/19 10:45 BP 117/64 07/31/19 10:45 Pulse Ox 93 L 07/31/19 10:45 - Orders/Labs/Meds Orders: Active Orders 24 hr Category Date Time Status Blood Glucose Check, Bedside [RC] ONETIME Care 07/31/19 08:52 Active EKG 12 Lead [EKG Documentation Completion] [RC] STAT Care 07/31/19 08:52 Active Peripheral IV Care [RC] . DIRECTED Care 07/31/19 08:53 Active Vaccines to be Administered [RC] PER UNIT ROUTINE Care 07/31/19 08:54 Active DRUG SCREEN URINE BIORAD [URCHEM] Stat Lab 07/31/19 08:52 Ordered UA RFX MORENA AND CULT IF INDIC [URIN] Stat Lab 07/31/19 08:52 Ordered Sodium Chloride 0.9% [Saline Flush] Med 07/31/19 08:52 Active 10 ml FLUSH ASDIRECTED PRN Peripheral IV Insertion Adult [OM.PC] Stat Oth 07/31/19 08:52 Ordered Medication Orders Sodium Chloride (Saline Flush) 10 ml FLUSH ASDIRECTED PRN PRN Reason: Keep Vein Open Labs: Laboratory Tests 12/02/19 12/02/19 12/02/19 Range/Units 08:57 08:57 08:57 WBC 14.6 H (5.0-10.0) 10^3/uL RBC 4.50 (4.2-5.4) 10^6/uL Hgb 14.1 D (12.0-16.0) g/dL Hct 41.6 (37.0-47.0) % MCV 92.4 (80-100) fL MCH 31.3 (27.0-34.0) pg MCHC 33.9 (33.0-35.0) g/dL Plt Count 162 D (150-450) 10^3/uL Neut % (Auto) 69.3 (42.2-75.2) % Lymph % (Auto) 23.2 (20.5-50.1) % [place] % (Auto) 6.5 (2-8) % Eos % (Auto) 0.8 L (1.0-3.0) % Baso % (Auto) 0.2 (0.0-1.0) % PT 9.5 (9.0-12.0) SEC INR 0.9 (0.9-1.2) APTT 21.2 L (22.0-34.0) SEC Sodium 138 (135-145) mmol/L Potassium 3.1 L (3.6-5.0) mmol/L Chloride 105 (101-111) mmol/L Carbon Dioxide 17.0 L (21.0-31.0) mmol/L Anion Gap 19.1 BUN 21 H (7-18) mg/dL Creatinine 0.9 (0.6-1.3) mg/dL Est Cr Clr Drug Dosing TNP Estimated GFR (MDRD) > 60 BUN/Creatinine Ratio 23.33 Glucose 173 H (74-105) mg/dL Calcium 8.9 (8.4-10.2) mg/dl Total Bilirubin 0.8 (0.2-1.0) mg/dL AST 44 H (10-42) IU/L ALT 29 (10-60) IU/L Alkaline Phosphatase 80 (42-121) IU/L Troponin I 0.15 H* (0.00-0.02) ng/ml Total Protein 6.9 (6.7-8.2) g/dl Albumin 3.7 (3.2-5.5) g/dl Globulin 3.2 Albumin/Globulin Ratio 1.16 Amylase 152 H (28-100) U/L Lipase 51 (22-51) U/L Digoxin (0-2.5) ng/ml Ethyl Alcohol < 5 mg/dL 07/31/19 Range/Units 08:57 WBC (5.0-10.0) 10^3/uL RBC (4.2-5.4) 10^6/uL Hgb (12.0-16.0) g/dL Hct (37.0-47.0) % MCV (80-100) fL MCH (27.0-34.0) pg MCHC (33.0-35.0) g/dL Plt Count (150-450) 10^3/uL Neut % (Auto) (42.2-75.2) % Lymph % (Auto) (20.5-50.1) % [place] % (Auto) (2-8) % Eos % (Auto) (1.0-3.0) % Baso % (Auto) (0.0-1.0) % PT (9.0-12.0) SEC INR (0.9-1.2) APTT (22.0-34.0) SEC Sodium (135-145) mmol/L Potassium (3.6-5.0) mmol/L Chloride (101-111) mmol/L Carbon Dioxide (21.0-31.0) mmol/L Anion Gap BUN (7-18) mg/dL Creatinine (0.6-1.3) mg/dL Est Cr Clr Drug Dosing Estimated GFR (MDRD) BUN/Creatinine Ratio Glucose (74-105) mg/dL Calcium (8.4-10.2) mg/dl Total Bilirubin (0.2-1.0) mg/dL AST (10-42) IU/L ALT (10-60) IU/L Alkaline Phosphatase (42-121) IU/L Troponin I (0.00-0.02) ng/ml Total Protein (6.7-8.2) g/dl Albumin (3.2-5.5) g/dl Globulin Albumin/Globulin Ratio Amylase (28-100) U/L Lipase (22-51) U/L Digoxin 0.5 (0-2.5) ng/ml Ethyl Alcohol mg/dL Meds: Medications Generic Name Dose Route Start Last Admin Trade Name Freq PRN Reason Stop Dose Admin Sodium Chloride 10 ml 07/31/19 08:52 Saline Flush FLUSH ASDIRECTED PRN Keep Vein Open Discontinued Medications Generic Name Dose Route Start Last Admin Trade Name Freshant PRN Reason Stop Dose Admin Diphtheria/Tetanus/Acell Pertussis 0.5 ml 07/31/19 08:54 Adacel IM 07/31/19 08:55 .ONCE ONE Lactated Ringer's 1,000 mls @ 999 mls/hr 07/31/19 08:54 Ringers, Lactated IV 07/31/19 09:54 .BOLUS ONE Ondansetron HCl 4 mg 07/31/19 08:54 Zofran IV 07/31/19 08:55 ONETIME ONE - Radiology Interpretation Free Text/Narrative:: CT Head: No sign of skull fracture, no I.C. hemorrhage. Chronic multi-infarct disease per Rad. report. - Re-Assessments/Exams Free Text/Narrative Re-Assessment/Exam: 07/31/19 10:15 Pt on anticoagulation with closed head injury s/p seizure w/scalp bleeding from non-repairable abrasion and elevated troponin without chest pain. Risk to benefit adler with the pt on Xarelto I am going to transfer her without Heparinization. Departure - Departure Time of Disposition: 10:15 Disposition: DC/Tfer to Acute Hospital 02 Condition: Serious, Undetermined Clinical Impression: Non-STEMI (non-ST elevated myocardial infarction), Seizure Head injury due to trauma Qualifiers: Encounter type: initial encounter Qualified Code(s): S09.90XA - Unspecified injury of head, initial encounter - Discharge Information *PRESCRIPTION DRUG MONITORING PROGRAM REVIEWED*: Not Applicable *COPY OF PRESCRIPTION DRUG MONITORING REPORT IN PATIENT ESTELA: Not Applicable Forms: ED Department Discharge, Interfacility Transfer EMTALA - My Orders Last 24 Hours: My Active Orders 07/31/19 08:52 Blood Glucose Check, Bedside [RC] ONETIME EKG 12 Lead [EKG Documentation Completion] [RC] STAT DRUG SCREEN URINE BIORAD [URCHEM] Stat UA RFX MORENA AND CULT IF INDIC [URIN] Stat Sodium Chloride 0.9% [Saline Flush] 10 ml FLUSH ASDIRECTED PRN Peripheral IV Insertion Adult [OM.PC] Stat 07/31/19 08:53 Peripheral IV Care [RC] . DIRECTED 07/31/19 08:54 Vaccines to be Administered [RC] PER UNIT ROUTINE - Assessment/Plan Last 24 Hours: My Active Orders 07/31/19 08:52 Blood Glucose Check, Bedside [RC] ONETIME EKG 12 Lead [EKG Documentation Completion] [RC] STAT DRUG SCREEN URINE BIORAD [URCHEM] Stat UA RFX MORENA AND CULT IF INDIC [URIN] Stat Sodium Chloride 0.9% [Saline Flush] 10 ml FLUSH ASDIRECTED PRN Peripheral IV Insertion Adult [OM.PC] Stat 07/31/19 08:53 Peripheral IV Care [RC] . DIRECTED 07/31/19 08:54 Vaccines to be Administered [RC] PER UNIT ROUTINE
[~2019-07-31 08:56] MED LIST: Diphtheria,Pertussis(Acell),Tetanus Vaccine 0.5 ML SDV IM ONE; Lactated Ringers 1,000 ML IV ONE; Ondansetron 4 MG/2 ML SDV IV ONE; Sodium Chloride 0.9% 10 ML Syringe FLUSH PRN
[2019-07-31 09:27] LABS: ANION GAP 19.1; CHLORIDE,CL 105 mmol/L (101-111); SODIUM,NA 138 mmol/L (135-145)
--- NOTE | 2019-07-31 09:32 | CT ---
EXAMINATION: Head wo Cont SEX: Female AGE: 74 years CLINICAL HISTORY: 74-year-old female injured in fall with head trauma (occipital laceration) and LOC sometime last night. Patient on anticoagulant therapy for multi-infarct ischemic disease. Comparison exam 01 August 2018. Scan technique: Volume acquisition of data emergency unenhanced CT scan of the head obtained with patient lying supine on the Siemens multislice scanner [place], [place]. All data archived in the PACS system for storage, reformatting and study. Interpretation: 1. Uniformly thick bony calvarium without sign of skull fracture, underlying brain contusion, epidural or subdural hematoma. 2. Asymmetric soft tissue swelling over the occipital convexity posterior laterally on the right. No foreign bodies. 3. Symmetric clear pneumatization of the mastoid and paranasal sinuses. Nasal septum is straight in the midline. 4. Multiple scattered foci of decreased attenuation identified throughout the periventricular white matter both cerebral hemispheres as noted on previous exam of 01 August 2018. No cerebral edema, mass effect or encephalomalacia. 5. Physiologic midline pineal and symmetric choroid plexus calcifications. 6. *No sign of acute intracerebral, intraventricular or subarachnoid bleed. 7. No supratentorial or posterior fossa mass lesion. No hydrocephalus. CONCLUSION: No sign of skull fracture or acute intracranial bleed. Chronic multi-infarct ischemic disease.
--- NOTE | 2019-07-31 10:19 | CT ---
EXAMINATION: Cervical Spine wo Cont SEX: Female AGE: 74 years CLINICAL HISTORY: 74-year-old female with "chronic microvascular ischemic disease" (on anticoagulant therapy), injured in unwitnessed fall last night. Head trauma without CT evidence of skull fracture or intracranial bleed. Scan technique: Volume acquisition of data emergency unenhanced CT scan of the cervical spine obtained with patient lying supine on the Siemens multi slice scanner [place], [place]. All data archived in the PACS system for storage, reformatting and study. Comparison exam 01 August 2018. INTERPRETATION: 1. Dense reactive atlantoaxial sclerosis. 2. There is mild osteopenia consistent with age and gender. 3. Chronic C4 anterolisthesis (unchanged when compared to exam 01 August 2018). 4. No prevertebral soft tissue swelling, acute new cervical fracture or spondylolisthesis. No jump locked facets. 5. Chronic severe multilevel mid and lower cervical disc disease i.e. interspace loss, endplate sclerosis and hypertrophic marginal/uncinate spur formation C4-5 C5-6 and C6-7 levels. 6. Lung apices clear. CONCLUSION: Abnormal. Chronic multilevel disc disease and hypertrophic reactive arthritic changes cervical spine. No new evidence of fracture and exam unchanged since 01 August 2018.
[2019-07-31 11:02] VITALS: BP 117/64; PULSE 73
== END 2019-07-31 10:43 ==
LOC: DL.ED 08:56
DX: I21.4 Non-ST elevation (NSTEMI) myocardial infarction (principal); S09.90XA Unspecified injury of head, initial encounter; S00.01XA Abrasion of scalp, initial encounter; G40.909 Epilepsy, unspecified, not intractable, without status epilepticus; R79.89 Other specified abnormal findings of blood chemistry; F41.9 Anxiety disorder, unspecified; I25.10 Atherosclerotic heart disease of native coronary artery without angina pectoris; E78.00 Pure hypercholesterolemia, unspecified; Z23 Encounter for immunization; Z86.73 Personal history of transient ischemic attack (TIA), and cerebral infarction without residual deficits; Z79.01 Long term (current) use of anticoagulants; Z95.5 Presence of coronary angioplasty implant and graft; W19.XXXA Unspecified fall, initial encounter; Y93.G3 Activity, cooking and baking; Y92.038 Other place in apartment as the place of occurrence of the external cause
CPT/HCPCS: 36415; 70450; 72125; 80053; 80162; 82150; 83690; 84484; 85025; 85610; 85730; 90715; 93005; 99285; G0480; J2405; 93010

== ENCOUNTER 2020-12-19 10:44 | Emergency (ER) | payer MEDICARE, BC ==
[~2020-12-19 10:44] MED LIST changes: -Diphtheria,Pertussis(Acell),Tetanus Vaccine 0.5 ML SDV IM ONE; -Lactated Ringers 1,000 ML IV ONE; -Ondansetron 4 MG/2 ML SDV IV ONE; +Ondansetron 4 MG/2 ML SDV IVPUSH ONE; -Sodium Chloride 0.9% 10 ML Syringe FLUSH PRN; +levETIRAcetam in NaCl (iso-os) 1,000 MG in Premix Bag 1 BAG IV ONE
--- NOTE | 2020-12-19 10:56 | EDM.PDOC ---
ED HPI GENERAL MEDICAL PROBLEM - General Time Seen by Provider: 12/19/20 10:45 Source of Information: Reports: Patient, EMS, Old Records, RN, RN Notes Reviewed History Limitations: Reports: Altered Mental Status - History of Present Illness INITIAL COMMENTS - FREE TEXT/NARRATIVE: Patient presents to the ED via EMS for seizure-like activity at a local cafe. Review of records reveals the patient has a history of CAD, CHF, NSTEMI with stenting, AIC with defib, and seizures. Upon arrival to this facility the patient is alert with a GCS of 15, but is only oriented to self and place. She appears somewhat post-ictal as she is drowsy and pleasantly confused. She is able to state she took all of her medications this morning, including Keppra 750mg. She denies recent illness, fever, shaking chills, vision changes, cough, sore throat, chest pain, shortness of breath, or abdominal pain. She does attest to numbness/tingling in her bilateral lower extremities but is able to move both appropriately. She denies tobacco, alcohol, or recreational drug use. She denies a history of COVID infection and has received two doses of a COVID vaccination. - Related Data Allergies Allergy/AdvReac Type Severity Reaction Status Date / Time No Known Allergies Allergy Verified 12/19/20 11:05 Home Meds: Home Meds Escitalopram Oxalate [Lexapro] 10 mg PO DAILY 11/10/13 [History] Nitroglycerin [Nitrostat] 0.4 mg SL ASDIRECTED PRN 11/10/13 [History] atorvaSTATin [Lipitor] 20 mg PO BEDTIME 11/10/13 [History] Digoxin [Digox] 125 mcg PO DAILY 07/27/16 [History] Metoprolol Succinate 100 mg PO DAILY 07/27/16 [History] Rivaroxaban [Xarelto] 20 mg PO DAILY 05/14/18 [History] Acetaminophen [Acetaminophen Extra Strength] 500 mg PO Q6H PRN 12/19/20 [History] Multivit-Minerals/Folic Acid [Centrum Adult 50 Fresh-Fruity] 240 mcg PO DAILY 12/19/20 [History] levETIRAcetam [Keppra] 500 mg PO BID 12/19/20 [History] Past Medical History HEENT History: Reports: Impaired Vision Cardiovascular History: Reports: Afib, Automatic Implantable Cardioverter Defibrillators, Bypass, CAD, High Cholesterol, Hypertension, Pacemaker, Stents Other Cardiovascular History: defibulator Respiratory History: Reports: None Gastrointestinal History: Reports: GERD 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: Neurological History: Reports: CVA, Seizure Psychiatric History: Reports: Anxiety - Infectious Disease History Infectious Disease History: Reports: Chicken Pox, Measles, Mumps - Past Surgical History HEENT Surgical History: Reports: Adenoidectomy, Cataract Surgery, Tonsillectomy Cardiovascular Surgical History: Reports: Coronary Artery Bypass, Pacer GI Surgical History: Reports: Cholecystectomy, Colonoscopy Other Musculoskeletal Surgeries/Procedures:: states had back surgery about 3 years ago Social & Family History - Family History Family Medical History: No Pertinent Family History - Caffeine Use Caffeine Use: Reports: Coffee - Living Situation & Occupation Living situation: Reports: Alone Occupation: Employed ED ROS GENERAL - Review of Systems Review Of Systems: Comprehensive ROS is negative, except as noted in HPI. - Physical Exam Exam: See Below Exam Limited By: Altered Mental Status (Oriented to self and place, only; Disoriented to time and situation) General Appearance: Alert, Thin, Other (Drowsy, somewhat post-ictal) Eye Exam: Bilateral Eye: EOMI, Nystagmus, PERRL (4mm) Ears: Normal External Exam, Normal Canal, Hearing Grossly Normal, Normal TMs Nose: Normal Inspection, Normal Mucosa, No Blood Throat/Mouth: Normal Lips, Normal Voice, No Airway Compromise, Evidence of Tongue Biting (Small laceration ) Head Exam: Atraumatic, Normocephalic. No: Scalp Lacerations, Scalp Swelling, Scalp Abrasions, Scalp Tenderness, Facial Abrasions, Facial Lacerations, Facial Swelling, Facial Tenderness Neck: Normal Inspection, Supple, Non-Tender, Full Range of Motion. No: Lymphadenopathy (L), Lymphadenopathy (R) Respiratory/Chest: No Respiratory Distress, Lungs Clear, Normal Breath Sounds, No Accessory Muscle Use, Chest Non-Tender Cardiovascular: Normal Peripheral Pulses, Regular Rate, Rhythm, No Edema, No Gallop, No Rub, Systolic Murmur (2/6, loudest over the pulmonic area; No radiation into carotids), Other (AICD to left chest) GI/Abdominal: Normal Bowel Sounds, Non-Tender, No Distention, No Mass, Pelvis Stable (Female) Exam: Deferred Rectal (Female) Exam: Deferred Neuro Exam (Abbreviated): Alert, Normal Reflexes, Confused, Disoriented, Memory Loss Recent Events. No: Memory Loss Remote Events Back Exam: Normal Inspection, Full Range of Motion Extremities: Normal Range of Motion, Non-Tender, No Pedal Edema, Normal Capillary Refill, Other (Tingling and numbness to bilateral lower extremities) Psychiatric: Normal Affect, Normal Mood Skin Exam: Warm, Dry, Intact, Normal Color, No Rash. No: Ecchymosis, Erythema, Jaundice, Mottled, Pallor, Petechiae #1 Interpretation EKG Date: 12/19/20 Time: 10:41 Rhythm: Other (V-Paced with 100% capture) Rate (Beats/Min): 70 [place]: LAD-Left [place] Deviation P-Wave: Absent QRS: Wide QT: Prolonged (529) EKG Interpretation Comments: V-paced with 100% capture; Course - Vital Signs Last Recorded V/S: Last Vital Signs Temp 97.2 F 12/19/20 11:39 Pulse 72 12/19/20 11:39 Resp 16 12/19/20 11:39 BP 118/68 12/19/20 11:39 Pulse Ox 95 12/19/20 11:39 - Orders/Labs/Meds Orders: Active Orders 24 hr Category Date Time Status Blood Glucose Check, Bedside [RC] ONETIME Care 12/19/20 10:38 Active EKG Documentation Completion [RC] STAT Care 12/19/20 10:37 Active DRUG SCREEN URINE BIORAD [URCHEM] Urgent Lab 12/19/20 10:38 Ordered REFLEX LACTIC ACID YES OR NO [CHEM] Routine Lab 12/19/20 11:18 Received UA RFX MORENA AND CULT IF INDIC [URIN] Stat Lab 12/19/20 10:38 Ordered Sodium Chloride 0.9% [Normal Saline] 1,000 ml Med 12/19/20 11:17 Active IV .BOLUS Medication Orders Sodium Chloride (Normal Saline) 1,000 mls @ 150 mls/hr IV .BOLUS ONE Stop: 12/19/20 17:56 Last Admin: 12/19/20 11:26 Dose: 999 mls/hr Documented by: MILAD Labs: Laboratory Tests 12/19/20 12/19/20 12/19/20 Range/Units 10:47 10:47 10:47 WBC 9.0 (5.0-10.0) 10^3/uL RBC 4.39 (4.2-5.4) 10^6/uL Hgb 13.6 (12.0-16.0) g/dL Hct 41.8 (37.0-47.0) % MCV 95.2 (80-100) fL MCH 31.0 (27.0-34.0) pg MCHC 32.5 L (33.0-35.0) g/dL Plt Count 139 L (150-450) 10^3/uL Neut % (Auto) 53.4 (42.2-75.2) % Lymph % (Auto) 36.9 (20.5-50.1) % [place] % (Auto) 7.6 (2-8) % Eos % (Auto) 1.8 (1.0-3.0) % Baso % (Auto) 0.3 (0.0-1.0) % PT 11.8 (9.0-12.0) SEC INR 1.2 (0.9-1.2) APTT 26.1 (22.0-34.0) SEC D-Dimer, Quantitative 141 (0-400) ng/mL Sodium 140 (136-145) mmol/L Potassium 4.1 (3.5-5.1) mmol/L Chloride 102 (98-107) mmol/L Carbon Dioxide 19 L (21-32) mmol/L Anion Gap 23.1 H (7-13) mEq/L BUN 14 (7-18) mg/dL Creatinine 1.12 H (0.55-1.02) mg/dL Est Cr Clr Drug Dosing 35.90 mL/min Estimated GFR (MDRD) 47 BUN/Creatinine Ratio 12.5 (No establ ref range) Glucose 164 H (70-99) mg/dL POC Glucose (70-99) mg/dL Lactic Acid (0.4-2.0) mmol/L Calcium 8.1 L (8.5-10.1) mg/dL Magnesium 2.0 (1.8-2.4) mg/dL Total Bilirubin 0.6 (0.2-1.0) mg/dL AST 22 (15-37) U/L ALT 27 (14-59) U/L Alkaline Phosphatase 101 (46-116) U/L Ammonia (11-32) umol/L Troponin I 0.482 H* (0.000-0.056) ng/mL C-Reactive Protein < 0.2 (0.0-0.9) mg/dL B-Natriuretic Peptide 203 H (0-100) pg/ml Total Protein 7.1 (6.4-8.2) g/dL Albumin 3.3 L (3.4-5.0) g/dL Globulin 3.8 Albumin/Globulin Ratio 0.87 Digoxin (0.9-2.0) ng/mL Ethyl Alcohol < 3 (0) mg/dL Influenza Type A RNA (NEGATIVE) Influenza Type B RNA (NEGATIVE) SARS-CoV-2 RNA (MARY) (NEGATIVE) 12/19/20 12/19/20 12/19/20 Range/Units 10:47 10:47 10:47 WBC (5.0-10.0) 10^3/uL RBC (4.2-5.4) 10^6/uL Hgb (12.0-16.0) g/dL Hct (37.0-47.0) % MCV (80-100) fL MCH (27.0-34.0) pg MCHC (33.0-35.0) g/dL Plt Count (150-450) 10^3/uL Neut % (Auto) (42.2-75.2) % Lymph % (Auto) (20.5-50.1) % [place] % (Auto) (2-8) % Eos % (Auto) (1.0-3.0) % Baso % (Auto) (0.0-1.0) % PT (9.0-12.0) SEC INR (0.9-1.2) APTT (22.0-34.0) SEC D-Dimer, Quantitative (0-400) ng/mL Sodium (136-145) mmol/L Potassium (3.5-5.1) mmol/L Chloride (98-107) mmol/L Carbon Dioxide (21-32) mmol/L Anion Gap (7-13) mEq/L BUN (7-18) mg/dL Creatinine (0.55-1.02) mg/dL Est Cr Clr Drug Dosing mL/min Estimated GFR (MDRD) BUN/Creatinine Ratio (No establ ref range) Glucose (70-99) mg/dL POC Glucose (70-99) mg/dL Lactic Acid 10.6 H* (0.4-2.0) mmol/L Calcium (8.5-10.1) mg/dL Magnesium (1.8-2.4) mg/dL Total Bilirubin (0.2-1.0) mg/dL AST (15-37) U/L ALT (14-59) U/L Alkaline Phosphatase (46-116) U/L Ammonia 13 (11-32) umol/L Troponin I (0.000-0.056) ng/mL C-Reactive Protein (0.0-0.9) mg/dL B-Natriuretic Peptide (0-100) pg/ml Total Protein (6.4-8.2) g/dL Albumin (3.4-5.0) g/dL Globulin Albumin/Globulin Ratio Digoxin 1.0 (0.9-2.0) ng/mL Ethyl Alcohol (0) mg/dL Influenza Type A RNA (NEGATIVE) Influenza Type B RNA (NEGATIVE) SARS-CoV-2 RNA (MARY) (NEGATIVE) 12/19/20 12/19/20 Range/Units 10:55 11:19 WBC (5.0-10.0) 10^3/uL RBC (4.2-5.4) 10^6/uL Hgb (12.0-16.0) g/dL Hct (37.0-47.0) % MCV (80-100) fL MCH (27.0-34.0) pg MCHC (33.0-35.0) g/dL Plt Count (150-450) 10^3/uL Neut % (Auto) (42.2-75.2) % Lymph % (Auto) (20.5-50.1) % [place] % (Auto) (2-8) % Eos % (Auto) (1.0-3.0) % Baso % (Auto) (0.0-1.0) % PT (9.0-12.0) SEC INR (0.9-1.2) APTT (22.0-34.0) SEC D-Dimer, Quantitative (0-400) ng/mL Sodium (136-145) mmol/L Potassium (3.5-5.1) mmol/L Chloride (98-107) mmol/L Carbon Dioxide (21-32) mmol/L Anion Gap (7-13) mEq/L BUN (7-18) mg/dL Creatinine (0.55-1.02) mg/dL Est Cr Clr Drug Dosing mL/min Estimated GFR (MDRD) BUN/Creatinine Ratio (No establ ref range) Glucose (70-99) mg/dL POC Glucose 146 H (70-99) mg/dL Lactic Acid (0.4-2.0) mmol/L Calcium (8.5-10.1) mg/dL Magnesium (1.8-2.4) mg/dL Total Bilirubin (0.2-1.0) mg/dL AST (15-37) U/L ALT (14-59) U/L Alkaline Phosphatase (46-116) U/L Ammonia (11-32) umol/L Troponin I (0.000-0.056) ng/mL C-Reactive Protein (0.0-0.9) mg/dL B-Natriuretic Peptide (0-100) pg/ml Total Protein (6.4-8.2) g/dL Albumin (3.4-5.0) g/dL Globulin Albumin/Globulin Ratio Digoxin (0.9-2.0) ng/mL Ethyl Alcohol (0) mg/dL Influenza Type A RNA Negative (NEGATIVE) Influenza Type B RNA Negative (NEGATIVE) SARS-CoV-2 RNA (MARY) Negative (NEGATIVE) Meds: Medications Generic Name Dose Route Start Last Admin Trade Name Freq PRN Reason Stop Dose Admin Sodium Chloride 1,000 mls @ 150 mls/hr 12/19/20 11:17 12/19/20 11:26 Normal Saline IV 12/19/20 17:56 999 mls/hr .BOLUS ONE Administration Discontinued Medications Generic Name Dose Route Start Last Admin Trade Name Freq PRN Reason Stop Dose Admin Levetiracetam 1,000 mg/ Premix 200 mls @ 800 mls/hr 12/19/20 10:42 12/19/20 10:50 IV 12/19/20 10:43 800 mls/hr ONETIME ONE Administration Ondansetron HCl 4 mg 12/19/20 10:42 12/19/20 10:49 Ondansetron 4 Mg/2 Ml Sdv IVPUSH 12/19/20 10:43 4 mg ONETIME ONE Administration - Radiology Interpretation Free Text/Narrative:: [facility] [place] - [facility] Final Radiology Report Call: [phone] assistance Online chat: [email or web address] Name: CLAIR ROB Age: 75Years F Date: 12/19/2020 SSN: -- : [id number] Study: CT HEAD WO CONT Requesting Physician: Ana Mckenna Images: [phone] Addl Studies: Provided Clinical History: r/o head bleed; seizure activity Contrast: Without Contrast Medium: Contrast Amount: Contrast Method: Page 1 of 2 PROCEDURE INFORMATION: Exam: CT Head Without Contrast Exam date and time: 12/19/2020 11:34 AM Age: 75 years old Clinical indication: Other: R/O head bleed; Seizure activity TECHNIQUE: Imaging protocol: Computed tomography of the head without contrast. Radiation optimization: All CT scans at this facility use at least one of these dose optimization techniques: automated exposure control; mA and/or kV adjustment per patient size (includes targeted exams where dose is matched to clinical indication); or iterative reconstruction. Other technique: STROKE PROTOCOL was implemented. COMPARISON: CT Head wo Cont 07/31/2019 9:01 AM FINDINGS: Brain: Lucencies in the white matter, most suggestive of chronic microvascular ischemic disease, do not appear significantly changed. There is no evidence for large acute cortical infarct. No intracranial hemorrhage or extraaxial collection is identified. There is no significant intracranial mass effect. Cerebral ventricles: The ventricles and sulci are stable in configuration, with similar atrophy. Bones/joints: Unremarkable. No acute fracture. Paranasal sinuses: Visualized sinuses are unremarkable. No fluid levels. Mastoid air cells: Visualized mastoid air cells are well aerated. Vasculature: Intracranial atherosclerotic vascular calcifications are again present. Soft tissues: Unremarkable. IMPRESSION: No CT evidence for acute intracranial abnormality or significant change since 07/31/19. ASSESSMENT: ASPECTS ([place] Stroke Program Early CT Score) is 10. COMMENTS: 1. Early cerebral infarct may be CT occult in the first 12 hours. 2. MRI would be more sensitive in the workup of seizures as clinically indic ated. Thank you for allowing us to participate in the care of your patient. Dictated and Authenticated by: Candelario Magallanes MD 12/19/2020 11:45 AM Central Time ([place] & [place]) - Re-Assessments/Exams Free Text/Narrative Re-Assessment/Exam: 12/19/20 Keppra 1gm administered while labs pending. Will obtain head CT and start IVF once BNP and electrolytes return; patient remains hemodynamically stable. EKG reveals V-paced rhythm with 100% capture. Lactic acid elevated at 10.6 Troponin elevated at 0.482 BNP [address] head negative for acute processes; no evidence of bleed, stroke, or mass effect. Case discussed with Dr. Stone from [facility] in [place] who kindly agreed to accept patient for transfer. Dr. Stone would like to withhold ASA and Heparin gtt at this time for elevated Troponin as patient is on Xarelto; he will continue to trend Troponin at [facility]. CBC unremarkable for acute processes; no evidence of infection or anemia. Coags appropriate; D-Dimer WNL at 141. Electrolytes and liver function appropriate via CMP; kidney function slightly reduced with creatinine of 1.12, BUN 14, and GFR 47. COVID and Influenza negative. Findings of examination, lab work, and imaging reviewed with patient. Discussed need for transfer to higher level of care given recent seizure despite medications and possible cardiac involvement. Patient verbalized understanding and agreement with the plan of care. Departure - Departure Time of Disposition: 12:24 Disposition: DC/Tfer to Acute Hospital 02 Condition: Fair Clinical Impression: Seizure, Elevated troponin level, Elevated lactic acid level, Elevated serum creatinine, Hx of chronic heart failure, AICD (automatic cardioverter/defibrillator) present, Hx of seizure disorder, History of non-ST elevation myocardial infarction (NSTEMI) - Discharge Information Forms: ED Department Discharge, Interfacility Transfer [facility] Sepsis Event Note (ED) - Evaluation Sepsis Screening Result: No Definite Risk - Focused Exam Vital Signs: Vital Signs Temp Pulse Resp BP Pulse Ox 12/19/20 11:39 97.2 F 72 16 118/68 95 12/19/20 10:46 94 L 12/19/20 10:44 96.1 F L 77 20 141/67 H - My Orders Last 24 Hours: My Active Orders 12/19/20 10:37 EKG Documentation Completion [RC] STAT 12/19/20 10:38 Blood Glucose Check, Bedside [RC] ONETIME DRUG SCREEN URINE BIORAD [URCHEM] Urgent UA RFX MORENA AND CULT IF INDIC [URIN] Stat 12/19/20 11:17 Sodium Chloride 0.9% [Normal Saline] 1,000 ml IV .BOLUS 12/19/20 11:18 REFLEX LACTIC ACID YES OR NO [CHEM] Routine - Assessment/Plan Last 24 Hours: My Active Orders 12/19/20 10:37 EKG Documentation Completion [RC] STAT 12/19/20 10:38 Blood Glucose Check, Bedside [RC] ONETIME DRUG SCREEN URINE BIORAD [URCHEM] Urgent UA RFX MORENA AND CULT IF INDIC [URIN] Stat 12/19/20 11:17 Sodium Chloride 0.9% [Normal Saline] 1,000 ml IV .BOLUS 12/19/20 11:18 REFLEX LACTIC ACID YES OR NO [CHEM] Routine
[2020-12-19 11:15] LABS: PTT,PARTIAL THROMBOPLSTIN TIME 26.1 SEC (22.0-34.0)
[2020-12-19 11:16] LABS: ANION GAP 23.1 mEq/L (7-13); CHLORIDE,CL 102 mmol/L (98-107); SODIUM,NA 140 mmol/L (136-145)
[2020-12-19] MEDS ORDERED: Sodium Chloride 0.9% 1,000 ML IV ONE (11:17)
--- NOTE | 2020-12-19 11:45 | CT ---
PROCEDURE INFORMATION: Exam: CT Head Without Contrast Exam date and time: 12/19/2020 11:34 AM Age: 75 years old Clinical indication: Other: R/O head bleed; Seizure activity TECHNIQUE: Imaging protocol: Computed tomography of the head without contrast. Radiation optimization: All CT scans at this facility use at least one of these dose optimization techniques: automated exposure control; mA and/or kV adjustment per patient size (includes targeted exams where dose is matched to clinical indication); or iterative reconstruction. Other technique: STROKE PROTOCOL was implemented. COMPARISON: CT Head wo Cont 07/31/2019 9:01 AM FINDINGS: Brain: Lucencies in the white matter, most suggestive of chronic microvascular ischemic disease, do not appear significantly changed. There is no evidence for large acute cortical infarct. No intracranial hemorrhage or extraaxial collection is identified. There is no significant intracranial mass effect. Cerebral ventricles: The ventricles and sulci are stable in configuration, with similar atrophy. Bones/joints: Unremarkable. No acute fracture. Paranasal sinuses: Visualized sinuses are unremarkable. No fluid levels. Mastoid air cells: Visualized mastoid air cells are well aerated. Vasculature: Intracranial atherosclerotic vascular calcifications are again present. Soft tissues: Unremarkable. IMPRESSION: No CT evidence for acute intracranial abnormality or significant change since 07/31/19. ASSESSMENT: ASPECTS ([place] Stroke Program Early CT Score) is 10. COMMENTS: 1. Early cerebral infarct may be CT occult in the first 12 hours. 2. MRI would be more sensitive in the workup of seizures as clinically indicated.
[2020-12-19 11:56] VITALS: BP 118/68; PULSE 72
[2020-12-19 12:09] LABS: CORONAVIRUS COVID-19 NAA NEGATIVE (NEGATIVE)
== END 2020-12-19 12:30 ==
LOC: DL.ED 10:44
DX: G40.909 Epilepsy, unspecified, not intractable, without status epilepticus (principal); E78.00 Pure hypercholesterolemia, unspecified; R79.89 Other specified abnormal findings of blood chemistry; R74.02 Elevation of levels of lactic acid dehydrogenase [LDH]; I11.0 Hypertensive heart disease with heart failure; I25.2 Old myocardial infarction; I50.9 Heart failure, unspecified; I25.10 Atherosclerotic heart disease of native coronary artery without angina pectoris; I48.91 Unspecified atrial fibrillation; Z79.01 Long term (current) use of anticoagulants; Z95.1 Presence of aortocoronary bypass graft; Z95.810 Presence of automatic (implantable) cardiac defibrillator; Z79.899 Other long term (current) drug therapy; Z86.73 Personal history of transient ischemic attack (TIA), and cerebral infarction without residual deficits; Z20.822 Contact with and (suspected) exposure to COVID-19
CPT/HCPCS: 0240U; 36415; 70450; 80053; 80162; 80307; 82140; 82947; 83605; 83735; 83880; 84484; 85025; 85379; 85610; 85730; 86140; 93005; 93010; 96374; 96375; 99284; 99285; J1953; J2405; J7030

== ENCOUNTER 2022-10-09 07:34 | Emergency (ER) | payer MEDICARE, BC ==
[2022-10-09] MEDS ORDERED: levETIRAcetam in NaCl (iso-os) 1,500 MG in Premix Bag 1 BAG IV ONE ×2 (07:37)
[2022-10-09] MEDS ORDERED: Sodium Chloride 0.9% 10 ML Syringe FLUSH PRN (07:39)
[2022-10-09 08:06] LABS: PTT,PARTIAL THROMBOPLSTIN TIME 18.6 SEC (22.0-34.0)
[2022-10-09 08:11] LABS: ANION GAP 22.8 mEq/L (7-13); CHLORIDE,CL 88 mmol/L (98-107); ESTIMATED GFR 69 mL/min (>=60); SODIUM,NA 126 mmol/L (136-145)
[2022-10-09 08:14] VITALS: BP 90/82; PULSE 71
[2022-10-09] MEDS ORDERED: Aspirin 81 MG Tab.Chew PO ONE (08:19)
[2022-10-09] MEDS ORDERED: Heparin Sodium 5,000 Units/ML Vial IVPUSH ONE (08:24)
[2022-10-09 08:25] LABS: CORONAVIRUS COVID-19 NAA NEGATIVE (NEGATIVE); RESPIRATORY SYNCYTIAL VIR NAA NEGATIVE (NEGATIVE)
[2022-10-09] MEDS ORDERED: Sodium Chloride 0.9% 1,000 ML IV SCH (08:30)
[2022-10-09] MEDS ORDERED: Heparin Sodium/0.45% NaCl 25,000 UNITS/500 ML BAG IV SCH (08:30)
[2022-10-09 09:43] LABS: AMPHETAMINES,URINE NEGATIVE (NEGATIVE); BARBITURATES,URINE NEGATIVE (NEGATIVE); BENZODIAZEPINE,URINE NEGATIVE (NEGATIVE); MDMA (ECSTASY), URINE NEGATIVE (NEGATIVE); METHADONE,URINE NEGATIVE (NEGATIVE); METHAMPHETAMINES,URINE NEGATIVE (NEGATIVE); OPIATES,URINE NEGATIVE (NEGATIVE); OXYCODONE,URINE NEGATIVE (NEGATIVE); PHENCYCLIDINE,URINE NEGATIVE (NEGATIVE); TCA,URINE NEGATIVE (NEGATIVE)
== END 2022-10-09 09:34 ==
LOC: DL.ED 07:34
DX: I63.9 Cerebral infarction, unspecified (principal); I21.4 Non-ST elevation (NSTEMI) myocardial infarction; R56.9 Unspecified convulsions; E87.1 Hypo-osmolality and hyponatremia; E87.20 Acidosis, unspecified; I25.10 Atherosclerotic heart disease of native coronary artery without angina pectoris; I25.2 Old myocardial infarction; I48.91 Unspecified atrial fibrillation; K21.9 Gastro-esophageal reflux disease without esophagitis; E78.00 Pure hypercholesterolemia, unspecified; I10 Essential (primary) hypertension; Z86.73 Personal history of transient ischemic attack (TIA), and cerebral infarction without residual deficits; Z95.0 Presence of cardiac pacemaker; Z79.899 Other long term (current) drug therapy; Z20.822 Contact with and (suspected) exposure to COVID-19; Z79.01 Long term (current) use of anticoagulants
CPT/HCPCS: 0241U; 36415; 70450; 71045; 80053; 80162; 80305-QW; 80307; 81003; 82550; 82947; 83605; 83735; 83880; 84484; 85025; 85610; 85730; 93005; 93010; 96365; 96375; 96376; 99285; 99285-25; A9270-GY; J1644; J1953; J3490; J7030